=== PATIENT | female | born 1990 | race African-American/Black ===

== ENCOUNTER 2016-07-01 14:20 | Emergency (ER) | payer SELFPAY ==
[~2016-07-01] VITALS: Ht 162.6 cm; Wt 54.4 kg
[2016-07-01 14:37] VITALS: BP 112/78
[2016-07-01 15:12] LABS: BASOPHILS % (AUTO) 0.4 % (0.0-2.0); DIFF TOTAL % 100 %; EOSINOPHILS % (AUTO) 0.3 % (0.0-6.0); HEMATOCRIT 41 % (33-45); HEMOGLOBIN 13.6 g/dL (11.5-14.8); LYMPHOCYTES # (AUTO) 1.7 /CMM (0.8-4.8); LYMPHOCYTES % (AUTO) 14.5 % (20.0-44.0); MEAN CORPUSCULAR HEMOGLOBIN 32 PG (26.0-33.0); MEAN CORPUSCULAR HGB CONC 33 g/dl (31.0-36.0); MEAN CORPUSCULAR VOLUME 96 fL (82-100); MONOCYTES # (AUTO) 0.5 /CMM (0.1-1.30); MONOCYTES % (AUTO) 4.7 % (2.0-12.0); NEUTROPHILS # (AUTO) 9.4 /CMM (1.8-8.9); NEUTROPHILS % (AUTO) 80.1 % (43.0-81.0); PLATELET COUNT (AUTO) 266 /CMM (150-450); RED BLOOD CELL COUNT(AUTO) 4.27 MIL/uL (4.0-5.2); WHITE BLOOD COUNT (AUTO) 11.6 K/uL (4.3-11.0)
[2016-07-01 15:22] LABS: ANION GAP 14 (5-14); CALCIUM, SERUM 9.4 mg/dL (8.5-10.1); CARBON DIOXIDE 26 mmol/L (21-32); CHLORIDE 105 mmol/L (98-107); CREATININE 0.8 mg/dL (0.6-1.3); GFR 86 mL/min (>60); GLUCOSE 89 mg/dL (74-106); POTASSIUM 4.2 mmol/L (3.5-5.1); SODIUM SERUM 141 mmol/L (136-145); UREA NITROGEN, BLOOD 13 mg/dL (7-18)
[2016-07-01 15:28] LABS: ALANINE AMINOTRANSFERASE 23 U/L (12-78); ALBUMIN 4.4 g/dL (3.4-5.0); ASPARTATE AMINOTRANSFERASE 18 U/L (15-37); BILIRUBIN,DIRECT 0.1 mg/dL (0.0-0.2); BILIRUBIN,TOTAL 0.4 mg/dL (0.2-1.0); INDIRECT BILIRUBIN 0.3 mg/dL (0.0-1.1); TOTAL PROTEIN, SERUM 7.9 g/dL (6.4-8.2)
[2016-07-01 15:29] LABS: ACETAMINOPHEN 0 ug/ml (10-30)
[2016-07-01] MEDS ORDERED: LORAZEPAM 1 MG TABLET PO ONE (15:30)
[2016-07-01 15:46] LABS: ADD UA MICROSCOPIC NO; KETONES,URINE Negative (NEGATIVE); LEUKOCYTE ESTERASE ,URINE Negative (NEGATIVE); PH,URINE 5.5 (5.0-8.0)
[2016-07-01 15:47] LABS: PREGNANCY TEST URINE QUAL NEGATIVE (NEGATIVE)
== END 2016-07-01 16:20 | disposition home or self-care (01) ==
LOC: ER 14:26
DX: F32.9 Major depressive disorder, single episode, unspecified (principal); R63.4 Abnormal weight loss
CPT/HCPCS: 36415; 80048; 80076; 81001; 84703; 85025; 99284; A4606; G0480; G0481; Z7610; 81000-TC; G6039-TC; G6040-TC